=== PATIENT | female | born 1975 | race Two or more races ===

== ENCOUNTER 2019-02-24 18:34 | Emergency (ER) | payer OTHER ==
[~2019-02-24] VITALS: Ht 157.5 cm; Wt 72.6 kg
[~2019-02-24 18:34] MED LIST: SYNTHROID50 MCG
== END 2019-02-25 03:08 | disposition home or self-care (01) ==
LOC: ER 18:34
DX: N83.291 Other ovarian cyst, right side (principal); N39.0 Urinary tract infection, site not specified

== ENCOUNTER 2019-03-08 08:37 | Outpatient (CLI) | payer OTHER | END 2019-03-08 09:02 | disposition home or self-care (01) | LOC: TOM 08:37 | DX: D51.0 Vitamin B12 deficiency anemia due to intrinsic factor deficiency (principal); D51.1 Vitamin B12 deficiency anemia due to selective vitamin B12 malabsorption with proteinuria; D51.3 Other dietary vitamin B12 deficiency anemia; E06.3 Autoimmune thyroiditis; E03.8 Other specified hypothyroidism; D17.1 Benign lipomatous neoplasm of skin and subcutaneous tissue of trunk; B96.81 Helicobacter pylori [H. pylori] as the cause of diseases classified elsewhere ==